=== PATIENT | female | born 1940 | race Caucasian/White ===

== ENCOUNTER 2022-06-29 11:32 | Emergency (ER) | payer MEDICARE ==
[~2022-06-29] VITALS: Ht 170.2 cm; Wt 113.6 kg
[2022-06-29 11:45] VITALS: BP 174/93
[2022-06-29] MEDS ORDERED: proparacaine 0.5% ophthalmic drops 15ml EACHEYE ONE (12:30)
[2022-06-29] MEDS ORDERED: erythromycin ophthalmic ointment 1gm tube EACHEYE ONE (13:20)
[2022-06-29] MEDS ORDERED: ERYT1OIN6 EACHEYE (13:21)
[2022-06-29] MEDS ORDERED: OFLO5DRO EACHEYE (20:12)
== END 2022-06-29 13:37 | disposition home or self-care (01) ==
LOC: ER 11:34
DX: S05.02XA Injury of conjunctiva and corneal abrasion without foreign body, left eye, initial encounter (principal); X58.XXXA Exposure to other specified factors, initial encounter; Y93.89 Activity, other specified; Y92.89 Other specified places as the place of occurrence of the external cause; Y99.8 Other external cause status; Z79.899 Other long term (current) drug therapy
CPT/HCPCS: 99283

== ENCOUNTER 2022-06-29 18:22 | Emergency (ER) | payer MEDICARE ==
[~2022-06-29] VITALS: Ht 170.2 cm; Wt 113.6 kg
[~2022-06-29 18:22] MED LIST: ERYT1OIN6 EACHEYE
[2022-06-29 18:26] VITALS: BP 152/90
[2022-06-29] MEDS ORDERED: proparacaine 0.5% ophthalmic drops 15ml EACHEYE ONE (19:00)
[2022-06-29] MEDS ORDERED: ofloxacin 0.33% 5ml ophthalmic drops RIGHTEYE SCH (20:00)
[2022-06-29] MEDS ORDERED: ofloxacin 0.33% 5ml ophthalmic drops EACHEYE ONE (20:00)
[2022-06-29] MEDS ORDERED: OFLO5DRO EACHEYE (20:12)
[2022-06-29] MEDS ORDERED: tropicamide 0.5% ophth drops 15ml bottle EACHEYE ONE (20:15)
== END 2022-06-29 20:48 | disposition home or self-care (01) ==
LOC: ER 18:23
DX: H57.13 Ocular pain, bilateral (principal); Z79.2 Long term (current) use of antibiotics
CPT/HCPCS: 99283; 99284